=== PATIENT | female | born 1970 | race Caucasian/White ===

== ENCOUNTER 2019-05-05 09:59 | Inpatient (IN) | payer BC ==
[2019-05-05 10:51] LABS: ABNORMAL IP MESSAGE 1; HEMATOCRIT 13.3 % (37.0-47.0); MEAN CORPUSCULAR HGB CONC 31.6 g/dl (32.0-37.0); MEAN CORPUSCULAR VOLUME 91.7 fl (82.0-101.0); NUCLEATED RED BLOOD CELLS% 0.2 /100WBC (0.0-0.0); PLATELET COUNT 135 10^3/UL (140-415); RED BLOOD COUNT 1.45 10^6/ul (4.20-5.40); RED CELL DISTRIBUTION WIDTH 14.4 % (11.5-14.5)
[2019-05-05 10:51] LABS: WHITE BLOOD COUNT 10.1 10^3/ul (4.8-10.8)
[2019-05-05 10:57] LABS: ADD MAN DIFF? YES; HEMOGLOBIN 4.2 g/dl (12.0-16.0); POSITIVE DIFF @See below
[2019-05-05 11:09] LABS: ALANINE AMINOTRANSFERASE 13 IU/L (13-69); ALBUMIN 4.3 g/dl (3.3-4.9); ALBUMIN/GLOBULIN RATIO 1.19; ALKALINE PHOSPHATASE 101 IU/L (42-121); ANION GAP 31 (5-13); ASPARTATE AMINO TRANSFERASE 23 IU/L (15-46); CHLORIDE 105 mmol/L (97-110); GLUCOSE 112 mg/dl (70-220); POTASSIUM 3.9 mmol/L (3.5-5.1); SODIUM 142 mmol/L (135-144); TOTAL PROTEIN 7.9 g/dl (6.1-8.1)
[2019-05-05 11:14] LABS: CALCIUM 3.2 mg/dl (8.4-10.2); CARBON DIOXIDE 6 mmol/L (21-31)
[2019-05-05] MEDS: HYDROCODONE/APAP (5/325) TAB PO (11:17)
[2019-05-05 11:20] LABS: TROPONIN-I < 0.012 ng/ml (0.000-0.120)
[2019-05-05 11:21] LABS: BLOOD UREA NITROGEN 202 mg/dl (7-20); CREATININE 21.61 mg/dl (0.44-1.00); Estimated GFR 2 mL/min (>60)
[2019-05-05 11:38] LABS: B-TYPE NATRIURETIC PEPTIDE 59800 PG/ML (0-125)
[2019-05-05 11:39] LABS: MODE ROOM AIR; MetHgb Venous 1.4 %; Sample Type Blood venous; Site VENOUS LINE; Venous COHb 0.6 %; Venous Fraction OxyHgb 36.4 %; Venous Oxygen Sat 37.1 mmHG (55.0-75.0); Venous Total Hemglobin 4.6 g/dl
[2019-05-05] MEDS: CALCIUM GLUCONATE 10% 1 GM in DEXTROSE 5% 100 ML IVPB (11:46)
[2019-05-05] MEDS: MAGNESIUM SULFATE 1 GM/D5W 100 ML IVPB (11:51)
[2019-05-05 12:00] LABS: ANISOCYTOSIS 2+ (0-0); BURR CELLS 1+ (0-0); EOSINOPHILS % (M) 1 % (0-7); HYPOCHROMASIA 1+ (0-0); LYMPHOCYTES #M 0.8 10^3/ul (0.8-2.9); LYMPHOCYTES % (M) 8 % (15-51); METAMYELOCYTES #M 0.1 10^3/ul (0.0-0.0); METAMYELOCYTES %M 1 % (0-0); MONOCYTE #M 0.2 10^3/ul (0.3-0.9); MONOCYTES % (M) 2 % (0-11); OVALOCYTES 1+ (0-0); PLATELET ESTIMATE DECREASED; POIKILOCYTOSIS 2+ (0-0); POLYCHROMASIA 2+ (0-0); SEGMENTED NEUTROPHILS (M) % 88 % (39-77); TEAR DROP CELLS 1+ (0-0)
[2019-05-05 12:17] LABS: PHOSPHORUS 12.4 mg/dl (2.5-4.9)
[2019-05-05] MEDS ORDERED: ACETAMINOPHEN 325 MG TAB PO (12:30)
[2019-05-05] MEDS ORDERED: ONDANSETRON 4 MG INJ IV (12:30)
[2019-05-05] MEDS: SODIUM BICARBONATE IN D5W 1,000 ML IV (12:54)
[2019-05-05] MEDS: SOD CHLORIDE 0.9% 0 ML IV (13:05)
[2019-05-05] MEDS ORDERED: ALBUTEROL/IPRATROPIUM (NEB) 3 ML AMP NEB (13:30)
[2019-05-05] MEDS ORDERED: INSULIN HUMAN REGULAR 100 UNIT in SOD CHLORIDE 0.9% 99 ML IV (13:30)
[2019-05-05] MEDS ORDERED: DEXTROSE 50% 50 ML SYRINGE IV ×2 (13:30)
[2019-05-05] MEDS: ACCU-CHEK XX ×3 (13:30→19:45)
[2019-05-05 16:25] LABS: IMMEDIATE SPIN CROSSMATCH 1 4
[2019-05-05 17:15] LABS: IONIZED CALCIUM < 0.6 mmol/L (1.1-1.4)
[2019-05-05] MEDS: MANNITOL 25% 50 ML INJ IV* ×4 (19:45→22:10)
[2019-05-05] MEDS: SEVELAMER CARBONATE 0.8 GM PKT GTB (19:45)
[2019-05-05] MEDS: morphine 2 MG INJ IV (20:51)
[2019-05-05 21:26] LABS: HEPATITIS B SURFACE ANTIGEN NEGATIVE (NEGATIVE)
[2019-05-05] MEDS: ONDANSETRON 4 MG INJ IV (21:26)
[2019-05-05 21:44] LABS: HEPATITIS B SURFACE ANTIBODY NEGATIVE (NEGATIVE)
[2019-05-05 21:44] LABS: HEPATITIS C VIRAL ANTIBODY NEGATIVE (NEGATIVE)
[2019-05-05] MEDS: HEPARIN 1000 UNITS/ML 10 ML INJ CATHETER (23:46)
[2019-05-06 05:39] LABS: ADD MAN DIFF? NO
[2019-05-06 05:52] LABS: ABNORMAL IP MESSAGE 1; BASOPHILS % 0.1 % (0.0-2.0); EOSINOPHILS % 0.3 % (0.0-7.0); HEMATOCRIT 17.6 % (37.0-47.0); LYMPHOCYTES # 0.4 10^3/ul (0.8-2.9); LYMPHOCYTES % 5.3 % (15.0-51.0); MEAN CORPUSCULAR HEMOGLOBIN 29.6 pg (29.0-33.0); MEAN CORPUSCULAR HGB CONC 34.1 g/dl (32.0-37.0); MEAN CORPUSCULAR VOLUME 86.7 fl (82.0-101.0); MEAN PLATELET VOLUME 10.5 fl (7.4-10.4); MONOCYTE # 0.3 10^3/ul (0.3-0.9); MONOCYTES % 4.2 % (0.0-11.0); NEUTROPHIL # 6.5 10^3/ul (1.6-7.5); NEUTROPHILS % 89.3 % (39.0-77.0); PLATELET COUNT 112 10^3/UL (140-415); RED BLOOD COUNT 2.03 10^6/ul (4.20-5.40); RED CELL DISTRIBUTION WIDTH 13.4 % (11.5-14.5)
[2019-05-06 05:52] LABS: WHITE BLOOD COUNT 7.3 10^3/ul (4.8-10.8)
[2019-05-06 06:10] LABS: ALANINE AMINOTRANSFERASE 22 IU/L (13-69); ALBUMIN 3.2 g/dl (3.3-4.9); ALBUMIN/GLOBULIN RATIO 1.06; ALKALINE PHOSPHATASE 83 IU/L (42-121); ANION GAP 21 (5-13); ASPARTATE AMINO TRANSFERASE 23 IU/L (15-46); BILIRUBIN,INDIRECT 0.4 mg/dl (0-1.1); BILIRUBIN,TOTAL 0.4 mg/dl (0.2-1.3); CARBON DIOXIDE 18 mmol/L (21-31); CHLORIDE 102 mmol/L (97-110); CREATININE 13.89 mg/dl (0.44-1.00); Estimated GFR 3 mL/min (>60); GLUCOSE 106 mg/dl (70-220); MAGNESIUM 1.2 mg/dl (1.7-2.5); PHOSPHORUS 6.1 mg/dl (2.5-4.9); SODIUM 141 mmol/L (135-144); TOTAL PROTEIN 6.2 g/dl (6.1-8.1)
[2019-05-06 06:18] LABS: POSITIVE DIFF @See below
[2019-05-06] MEDS: PANTOPRAZOLE 40 MG INJ IV (06:32)
[2019-05-06] MEDS: SODIUM BICARBONATE IN D5W 1,000 ML IV ×2 (06:32→21:31)
[2019-05-06 06:39] LABS: BLOOD UREA NITROGEN 140 mg/dl (7-20)
[2019-05-06 06:42] LABS: POTASSIUM 2.5 mmol/L (3.5-5.1)
[2019-05-06] MEDS: POTASSIUM CHLORIDE (SR) 20 MEQ TAB PO ×2 (07:00→07:39)
[2019-05-06 07:23] LABS: IONIZED CALCIUM 0.7 mmol/L (1.1-1.4)
[2019-05-06] MEDS: ONDANSETRON 4 MG INJ IV ×2 (07:43→14:53)
[2019-05-06] MEDS: CALCIUM GLUCONATE 10% 2 GM in DEXTROSE 5% 100 ML IVPB ×2 (07:44→08:09)
[2019-05-06] MEDS: SOD CHLORIDE 0.9% 250 ML IV* ×2 (07:55→10:38)
[2019-05-06 08:16] LABS: BURR CELLS 1+ (0-0); ERYTHROBLAST% (NRBC) (M) 1 % (0-0); GIANT THROMBO% (M) 2 % (0-0); LYMPHOCYTES #M 0.3 10^3/ul (0.8-2.9); LYMPHOCYTES % (M) 5 % (15-51); MONOCYTE #M 0.3 10^3/ul (0.3-0.9); MONOCYTES % (M) 5 % (0-11); OVALOCYTES 1+ (0-0); PLATELET ESTIMATE DECREASED; POIKILOCYTOSIS 1+ (0-0); POLYCHROMASIA 1+ (0-0); SEGMENTED NEUTROPHILS (M) % 90 % (39-77); SMUDGE%M 1 % (0-0)
[2019-05-06 08:33] LABS: HAAIG REFLEX REFLEX FILED
[2019-05-06] MEDS: MAGNESIUM SULFATE 2 GM/50 ML 50 ML IVPB ×2 (08:57→11:33)
[2019-05-06 09:34] LABS: HEPATITIS B SURFACE ANTIGEN NEGATIVE (NEGATIVE)
[2019-05-06] MEDS: CALCITRIOL 1 MCG INJ IV (09:40)
[2019-05-06 09:52] LABS: HEPATITIS B CORE ANTIBODY NEGATIVE (NEGATIVE); HEPATITIS C VIRAL ANTIBODY NEGATIVE (NEGATIVE)
[2019-05-06 09:56] LABS: PARATHYROID HORMONE 438.5 pg/ml (24.0-73.0)
[2019-05-06] MEDS: POTASSIUM CHLORIDE 50 ML IVPB ×2 (12:34→14:53)
[2019-05-06] MEDS: MANNITOL 25% 50 ML INJ IV* (13:07)
[2019-05-06] MEDS: HEPARIN 1000 UNITS/ML 10 ML INJ CATHETER (16:04)
[2019-05-06] MEDS: POTASSIUM CHLORIDE 100 ML IVPB (23:01)
[2019-05-06] MEDS: DIPHENHYDRAMINE 50 MG CAP PO (23:01)
[2019-05-07] MEDS: PHENAZOPYRIDINE 100 MG TAB PO (01:36)
[2019-05-07] MEDS: POTASSIUM CHLORIDE 100 ML IVPB (01:37)
[2019-05-07] MEDS: SODIUM BICARBONATE IN D5W 1,000 ML IV ×2 (03:30→10:08)
[2019-05-07] MEDS: EUCERIN 113 GM CR TOP ×3 (03:33→21:32)
[2019-05-07] MEDS: CEFTRIAXONE 1 GM/50 ML (PMX) 50 ML IVPB (03:34)
[2019-05-07] MEDS: PANTOPRAZOLE 40 MG INJ IV (05:26)
[2019-05-07 07:08] LABS: WHITE BLOOD COUNT 6.9 10^3/ul (4.8-10.8)
[2019-05-07 07:08] LABS: ADD MAN DIFF? NO; BASOPHILS % 0.4 % (0.0-2.0); EOSINOPHILS # 0.1 10^3/ul (0.0-0.5); EOSINOPHILS % 1.4 % (0.0-7.0); HEMATOCRIT 26.1 % (37.0-47.0); LYMPHOCYTES # 0.8 10^3/ul (0.8-2.9); LYMPHOCYTES % 11.6 % (15.0-51.0); MEAN CORPUSCULAR HEMOGLOBIN 30.1 pg (29.0-33.0); MEAN CORPUSCULAR HGB CONC 34.5 g/dl (32.0-37.0); MEAN CORPUSCULAR VOLUME 87.3 fl (82.0-101.0); MEAN PLATELET VOLUME 10.3 fl (7.4-10.4); MONOCYTE # 0.6 10^3/ul (0.3-0.9); NEUTROPHIL # 5.4 10^3/ul (1.6-7.5); PLATELET COUNT 106 10^3/UL (140-415); RED BLOOD COUNT 2.99 10^6/ul (4.20-5.40); RED CELL DISTRIBUTION WIDTH 14.3 % (11.5-14.5)
[2019-05-07 07:21] LABS: ADD UMIC YES; UR ASCORBIC ACID NEGATIVE (NEGATIVE); UR BACTERIA FEW /HPF (NONE SEEN); UR BILIRUBIN (Dip) NEGATIVE (NEGATIVE); UR BLOOD (Dip) 1+ mg/dL (NEGATIVE); UR CLARITY CLEAR (CLEAR); UR COLOR STRAW (YELLOW); UR GLUCOSE (Dip) 1+ mg/dL (NEGATIVE); UR KETONES (Dip) TRACE mg/dL (NEGATIVE); UR LEUKOCYTE ESTERASE (Dip) TRACE Leu/ul (NEGATIVE); UR NITRITE (Dip) NEGATIVE (NEGATIVE); UR RBC 4 /HPF (0-5); UR SPECIFIC GRAVITY (Dip) 1.009 (1.003-1.030); UR SQUAMOUS EPITHELIAL CELL FEW /HPF (FEW); UR TOTAL PROTEIN (Dip) 2+ mg/dl (NEGATIVE); UR UROBILINOGEN (Dip) NEGATIVE (NEGATIVE); UR WBC 5 /HPF (0-5)
[2019-05-07 07:28] LABS: ALANINE AMINOTRANSFERASE 18 IU/L (13-69); ALBUMIN/GLOBULIN RATIO 0.96; ALKALINE PHOSPHATASE 80 IU/L (42-121); ANION GAP 10 (5-13); ASPARTATE AMINO TRANSFERASE 22 IU/L (15-46); BILIRUBIN,INDIRECT 0.9 mg/dl (0-1.1); BILIRUBIN,TOTAL 0.9 mg/dl (0.2-1.3); BLOOD UREA NITROGEN 92 mg/dl (7-20); CARBON DIOXIDE 34 mmol/L (21-31); CHLORIDE 97 mmol/L (97-110); CREATININE 9.79 mg/dl (0.44-1.00); Estimated GFR 4 mL/min (>60); GLUCOSE 126 mg/dl (70-220); PHOSPHORUS 4.2 mg/dl (2.5-4.9); POTASSIUM 3.2 mmol/L (3.5-5.1); SODIUM 141 mmol/L (135-144); TOTAL PROTEIN 6.1 g/dl (6.1-8.1)
[2019-05-07 07:32] LABS: CALCIUM 5.2 mg/dl (8.4-10.2)
[2019-05-07 08:08] LABS: MAGNESIUM 1.9 mg/dl (1.7-2.5)
[2019-05-07] MEDS: CALCITRIOL 1 MCG INJ IV (10:07)
[2019-05-07] MEDS: CALCIUM CARBONATE 500 MG CHEW TAB PO ×3 (10:07→21:33)
[2019-05-07] MEDS: CALCIUM GLUCONATE 10% 2 GM in DEXTROSE 5% 100 ML IVPB (10:08)
[2019-05-07] MEDS: POTASSIUM CHLORIDE (SR) 20 MEQ TAB PO (10:08)
[2019-05-07] MEDS: MAGNESIUM SULFATE 2 GM/50 ML 50 ML IVPB (12:18)
[2019-05-07] MEDS ORDERED: SODIUM BICARBONATE (IV ADD) 150 MEQ in DEXTROSE 5% 850 ML IV (16:50)
[2019-05-07] MEDS: MANNITOL 25% 50 ML INJ IV* (17:23)
[2019-05-07] MEDS: ALTEPLASE (CATHFLO) 2 MG INJ CATHETER (19:57)
[2019-05-07] MEDS: LABETALOL HCL 20MG INJ IV (21:15)
[2019-05-07] MEDS: COLLAGENASE 5 GM (UD JAR) TOP (21:31)
[2019-05-07] MEDS ORDERED: LORAZEPAM 2 MG INJ IV ×2 (22:00)
[2019-05-07 22:12] LABS: ANION GAP 13 (5-13); BLOOD UREA NITROGEN 44 mg/dl (7-20); CALCIUM 7.5 mg/dl (8.4-10.2); CARBON DIOXIDE 32 mmol/L (21-31); CHLORIDE 95 mmol/L (97-110); CREATININE 5.96 mg/dl (0.44-1.00); Estimated GFR 8 mL/min (>60); GLUCOSE 177 mg/dl (70-220); MAGNESIUM 2.1 mg/dl (1.7-2.5); PHOSPHORUS 2.8 mg/dl (2.5-4.9); POTASSIUM 3.2 mmol/L (3.5-5.1); SODIUM 140 mmol/L (135-144)
[2019-05-07] MEDS: LEVETIRACETAM IV 750 MG in DEXTROSE 5% 100 ML IVPB (22:56)
[2019-05-08] MEDS: LORAZEPAM 2 MG INJ IV (00:20)
[2019-05-08] MEDS: CEFTRIAXONE 1 GM/50 ML (PMX) 50 ML IVPB (00:31)
[2019-05-08] MEDS: POTASSIUM CHLORIDE 100 ML IVPB (01:09)
[2019-05-08] MEDS: PANTOPRAZOLE 40 MG INJ IV (05:41)
[2019-05-08 06:34] LABS: ADD MAN DIFF? NO
[2019-05-08 06:55] LABS: WHITE BLOOD COUNT 8.4 10^3/ul (4.8-10.8)
[2019-05-08 06:55] LABS: BASOPHILS % 0.2 % (0.0-2.0); EOSINOPHILS # 0.1 10^3/ul (0.0-0.5); EOSINOPHILS % 0.8 % (0.0-7.0); HEMATOCRIT 27.4 % (37.0-47.0); HEMOGLOBIN 8.9 g/dl (12.0-16.0); LYMPHOCYTES # 0.7 10^3/ul (0.8-2.9); LYMPHOCYTES % 8.2 % (15.0-51.0); MEAN CORPUSCULAR HEMOGLOBIN 29.9 pg (29.0-33.0); MEAN CORPUSCULAR HGB CONC 32.5 g/dl (32.0-37.0); MEAN CORPUSCULAR VOLUME 91.9 fl (82.0-101.0); MEAN PLATELET VOLUME 10.2 fl (7.4-10.4); MONOCYTE # 0.7 10^3/ul (0.3-0.9); MONOCYTES % 7.7 % (0.0-11.0); NEUTROPHIL # 6.9 10^3/ul (1.6-7.5); NEUTROPHILS % 82.6 % (39.0-77.0); PLATELET COUNT 102 10^3/UL (140-415); RED BLOOD COUNT 2.98 10^6/ul (4.20-5.40); RED CELL DISTRIBUTION WIDTH 14.3 % (11.5-14.5)
[2019-05-08 07:16] LABS: ALANINE AMINOTRANSFERASE 18 IU/L (13-69); ALBUMIN 3.1 g/dl (3.3-4.9); ALBUMIN/GLOBULIN RATIO 0.96; ALKALINE PHOSPHATASE 81 IU/L (42-121); ANION GAP 8 (5-13); ASPARTATE AMINO TRANSFERASE 26 IU/L (15-46); BILIRUBIN,INDIRECT 0.5 mg/dl (0-1.1); BILIRUBIN,TOTAL 0.5 mg/dl (0.2-1.3); BLOOD UREA NITROGEN 51 mg/dl (7-20); CALCIUM 6.5 mg/dl (8.4-10.2); CARBON DIOXIDE 35 mmol/L (21-31); CHLORIDE 96 mmol/L (97-110); CREATININE 6.46 mg/dl (0.44-1.00); Estimated GFR 7 mL/min (>60); GLUCOSE 106 mg/dl (70-220); MAGNESIUM 2.1 mg/dl (1.7-2.5); PHOSPHORUS 3.2 mg/dl (2.5-4.9); SODIUM 139 mmol/L (135-144); TOTAL PROTEIN 6.3 g/dl (6.1-8.1)
[2019-05-08] MEDS ORDERED: CALCIUM ACETATE 667 MG CAP PO (07:55)
[2019-05-08] MEDS ORDERED: CALCITRIOL 0.25 MCG CAP PO (09:00)
[2019-05-08] MEDS: CALCIUM CARBONATE 500 MG CHEW TAB PO ×3 (09:07→18:49)
[2019-05-08] MEDS: CALCITRIOL 1 MCG INJ IV (09:07)
[2019-05-08] MEDS: HYDROCORTISONE 2.5% 28.35 GM OINT TOP (09:10)
[2019-05-08] MEDS: COLLAGENASE 5 GM (UD JAR) TOP ×2 (09:11→20:42)
[2019-05-08] MEDS: EUCERIN 113 GM CR TOP ×2 (09:13→20:42)
[2019-05-08] MEDS: CALCIUM GLUCONATE 10% 2 GM in DEXTROSE 5% 100 ML IVPB (12:01)
[2019-05-08 12:22] LABS: INR 1.05; PROTIME 13.8 Sec (11.9-14.9); PT RATIO 1.1
[2019-05-08 15:08] LABS: AMPHETAMINE/METHAMPHETAMINE Negative (NEGATIVE); BARBITURATES Negative (NEGATIVE); BENZODIAZEPINES Negative (NEGATIVE); CANNABINOIDS Negative (NEGATIVE); COCAINE Negative (NEGATIVE); OPIATES Negative (NEGATIVE)
[2019-05-09] MEDS: CEFTRIAXONE 1 GM/50 ML (PMX) 50 ML IVPB (00:23)
[2019-05-09] MEDS: PANTOPRAZOLE 40 MG INJ IV (06:02)
[2019-05-09 06:47] LABS: ADD MAN DIFF? NO
[2019-05-09 06:50] LABS: BASOPHILS % 0.4 % (0.0-2.0); EOSINOPHILS # 0.3 10^3/ul (0.0-0.5); HEMATOCRIT 30.2 % (37.0-47.0); HEMOGLOBIN 9.3 g/dl (12.0-16.0); LYMPHOCYTES # 1.3 10^3/ul (0.8-2.9); LYMPHOCYTES % 15.6 % (15.0-51.0); MEAN CORPUSCULAR HEMOGLOBIN 29.7 pg (29.0-33.0); MEAN CORPUSCULAR HGB CONC 30.8 g/dl (32.0-37.0); MEAN CORPUSCULAR VOLUME 96.5 fl (82.0-101.0); MEAN PLATELET VOLUME 9.9 fl (7.4-10.4); MONOCYTE # 0.5 10^3/ul (0.3-0.9); MONOCYTES % 5.8 % (0.0-11.0); NEUTROPHIL # 6.1 10^3/ul (1.6-7.5); NEUTROPHILS % 73.5 % (39.0-77.0); PLATELET COUNT 105 10^3/UL (140-415); RED BLOOD COUNT 3.13 10^6/ul (4.20-5.40); RED CELL DISTRIBUTION WIDTH 14.3 % (11.5-14.5)
[2019-05-09 06:50] LABS: WHITE BLOOD COUNT 8.3 10^3/ul (4.8-10.8)
[2019-05-09 07:14] LABS: ANION GAP 9 (5-13); BLOOD UREA NITROGEN 62 mg/dl (7-20); CALCIUM 6.4 mg/dl (8.4-10.2); CARBON DIOXIDE 33 mmol/L (21-31); CHLORIDE 98 mmol/L (97-110); CREATININE 7.99 mg/dl (0.44-1.00); Estimated GFR 5 mL/min (>60); GLUCOSE 88 mg/dl (70-220); PHOSPHORUS 3.8 mg/dl (2.5-4.9); SODIUM 140 mmol/L (135-144)
[2019-05-09] MEDS: EUCERIN 113 GM CR TOP ×2 (09:22→21:30)
[2019-05-09] MEDS: CALCITRIOL 1 MCG INJ IV (09:22)
[2019-05-09] MEDS: CALCIUM CARBONATE 500 MG CHEW TAB PO ×4 (09:22→21:30)
[2019-05-09] MEDS: COLLAGENASE 5 GM (UD JAR) TOP ×2 (09:23→21:30)
[2019-05-09] MEDS: HYDROCORTISONE 2.5% 28.35 GM OINT TOP (09:23)
[2019-05-09] MEDS: ACETAMINOPHEN 650MG/20.3ML CUP PO (16:42)
[2019-05-09] MEDS: ONDANSETRON 4 MG INJ IV (17:12)
[2019-05-09] MEDS: EPOETIN ALFA-EPBX (ESRD) 10,000 UNIT/ML VIAL SC (18:34)
[2019-05-09] MEDS: HEPARIN 1000 UNITS/ML 10 ML INJ CATHETER (18:39)
[2019-05-10] MEDS: CEFTRIAXONE 1 GM/50 ML (PMX) 50 ML IVPB (00:45)
[2019-05-10] MEDS: PANTOPRAZOLE 40 MG INJ IV (05:49)
[2019-05-10] MEDS: CALCITRIOL 1 MCG INJ IV (08:30)
[2019-05-10] MEDS: CALCIUM CARBONATE 500 MG CHEW TAB PO ×4 (08:30→21:36)
[2019-05-10] MEDS: HYDROCORTISONE 2.5% 28.35 GM OINT TOP (08:30)
[2019-05-10] MEDS: COLLAGENASE 5 GM (UD JAR) TOP ×2 (08:30→21:35)
[2019-05-10] MEDS: EUCERIN 113 GM CR TOP ×2 (08:31→21:38)
[2019-05-10 09:13] LABS: ADD MAN DIFF? NO
[2019-05-10 09:25] LABS: WHITE BLOOD COUNT 8.1 10^3/ul (4.8-10.8)
[2019-05-10 09:25] LABS: BASOPHILS % 0.5 % (0.0-2.0); EOSINOPHILS # 0.3 10^3/ul (0.0-0.5); EOSINOPHILS % 3.5 % (0.0-7.0); HEMATOCRIT 29.5 % (37.0-47.0); LYMPHOCYTES # 1.1 10^3/ul (0.8-2.9); LYMPHOCYTES % 13.4 % (15.0-51.0); MEAN CORPUSCULAR HEMOGLOBIN 29.3 pg (29.0-33.0); MEAN CORPUSCULAR HGB CONC 30.5 g/dl (32.0-37.0); MEAN CORPUSCULAR VOLUME 96.1 fl (82.0-101.0); MEAN PLATELET VOLUME 10.3 fl (7.4-10.4); MONOCYTE # 0.6 10^3/ul (0.3-0.9); MONOCYTES % 6.8 % (0.0-11.0); NEUTROPHIL # 6.1 10^3/ul (1.6-7.5); NEUTROPHILS % 75.6 % (39.0-77.0); PLATELET COUNT 102 10^3/UL (140-415); RED BLOOD COUNT 3.07 10^6/ul (4.20-5.40); RED CELL DISTRIBUTION WIDTH 13.9 % (11.5-14.5)
[2019-05-10 09:38] LABS: ANION GAP 9 (5-13); BLOOD UREA NITROGEN 34 mg/dl (7-20); CALCIUM 7.7 mg/dl (8.4-10.2); CARBON DIOXIDE 32 mmol/L (21-31); CHLORIDE 99 mmol/L (97-110); CREATININE 5.27 mg/dl (0.44-1.00); Estimated GFR 9 mL/min (>60); GLUCOSE 89 mg/dl (70-220); POTASSIUM 4.1 mmol/L (3.5-5.1); SODIUM 140 mmol/L (135-144)
[2019-05-10] MEDS: ZOLPIDEM 5 MG TAB PO (21:39)
[2019-05-11] MEDS: CEFTRIAXONE 1 GM/50 ML (PMX) 50 ML IVPB (00:34)
[2019-05-11] MEDS: PANTOPRAZOLE 40 MG INJ IV (05:38)
[2019-05-11 06:56] LABS: ADD MAN DIFF? NO
[2019-05-11 07:02] LABS: WHITE BLOOD COUNT 7.4 10^3/ul (4.8-10.8)
[2019-05-11 07:02] LABS: BASOPHILS % 0.4 % (0.0-2.0); EOSINOPHILS # 0.4 10^3/ul (0.0-0.5); EOSINOPHILS % 4.8 % (0.0-7.0); HEMATOCRIT 27.9 % (37.0-47.0); HEMOGLOBIN 8.4 g/dl (12.0-16.0); LYMPHOCYTES # 1.2 10^3/ul (0.8-2.9); LYMPHOCYTES % 16.7 % (15.0-51.0); MEAN CORPUSCULAR HEMOGLOBIN 29.1 pg (29.0-33.0); MEAN CORPUSCULAR HGB CONC 30.1 g/dl (32.0-37.0); MEAN CORPUSCULAR VOLUME 96.5 fl (82.0-101.0); MEAN PLATELET VOLUME 9.8 fl (7.4-10.4); MONOCYTE # 0.5 10^3/ul (0.3-0.9); MONOCYTES % 6.7 % (0.0-11.0); NEUTROPHIL # 5.3 10^3/ul (1.6-7.5); PLATELET COUNT 101 10^3/UL (140-415); RED BLOOD COUNT 2.89 10^6/ul (4.20-5.40); RED CELL DISTRIBUTION WIDTH 13.7 % (11.5-14.5)
[2019-05-11 07:34] LABS: ANION GAP 11 (5-13); BLOOD UREA NITROGEN 56 mg/dl (7-20); CALCIUM 7.2 mg/dl (8.4-10.2); CARBON DIOXIDE 29 mmol/L (21-31); CHLORIDE 100 mmol/L (97-110); CREATININE 6.97 mg/dl (0.44-1.00); Estimated GFR 6 mL/min (>60); GLUCOSE 102 mg/dl (70-220); POTASSIUM 4.1 mmol/L (3.5-5.1); SODIUM 140 mmol/L (135-144)
[2019-05-11] MEDS: LIDOCAINE 1% (MDV) 20 ML INJ (07:34)
[2019-05-11] MEDS: HEPARIN 1000 UNITS/ML 10 ML INJ (07:34)
[2019-05-11] MEDS: FENTAnyl 50 MCG/ML VIAL (07:35)
[2019-05-11] MEDS: MIDAZOLAM 1 MG/ML 2 ML INJ (07:35)
[2019-05-11] MEDS: COLLAGENASE 5 GM (UD JAR) TOP (08:17)
[2019-05-11] MEDS: CALCITRIOL 1 MCG INJ IV (08:17)
[2019-05-11] MEDS: HYDROCORTISONE 2.5% 28.35 GM OINT TOP (08:17)
[2019-05-11] MEDS: CALCIUM CARBONATE 500 MG CHEW TAB PO ×3 (08:17→16:30)
[2019-05-11] MEDS: EUCERIN 113 GM CR TOP (08:18)
[2019-05-11] MEDS: CHOLECALCIFEROL 2,000 UNIT CAP PO (10:11)
[2019-05-11 10:22] LABS: IRON 53 ug/dl (35-150)
[2019-05-11 10:31] LABS: % IRON SATURATION 23 % SAT (22-52)
[2019-05-11 11:05] LABS: TOTAL IRON BINDING CAPACITY 229 ug/dl (241-421)
[2019-05-11] MEDS: HEPARIN 1000 UNITS/ML 10 ML INJ CATHETER (12:57)
[2019-05-11] MEDS: GENTAMICIN 70 MG in DEXTROSE 5% 50 ML IVPB (13:10)
[2019-05-11] MEDS: GENTAMICIN IV PER PHARMACY XX (13:11)
[2019-05-11] MEDS: EPOETIN ALFA-EPBX (ESRD) 10,000 UNIT/ML VIAL SC (16:31)
[2019-05-11] MEDS ORDERED: ZOLPIDEM 5 MG TAB PO (21:00)
== END 2019-05-11 19:00 | disposition home health service (06) | DRG 673 ==
LOC: TEL 05-08 00:56 → E/R 09:59 → TEL 05-06 22:20 → ICU 12:26
PROC: 06HM33Z Insertion of Infusion Device into Right Femoral Vein, Percutaneous Approach (ICD-10-PCS; 2019-05-05)
PROC: 30233N1 Transfusion of Nonautologous Red Blood Cells into Peripheral Vein, Percutaneous Approach (ICD-10-PCS; 2019-05-05)
PROC: 5A1D70Z Performance of Urinary Filtration, Intermittent, Less than 6 Hours Per Day (ICD-10-PCS; 2019-05-05)
PROC: 0JH63XZ Insertion of Tunneled Vascular Access Device into Chest Subcutaneous Tissue and Fascia, Percutaneous Approach (ICD-10-PCS; principal; 2019-05-09)
PROC: 02H633Z Insertion of Infusion Device into Right Atrium, Percutaneous Approach (ICD-10-PCS; 2019-05-09)
PROC: B244ZZZ Ultrasonography of Right Heart (ICD-10-PCS; 2019-05-09)
DX: I12.0 Hypertensive chronic kidney disease with stage 5 chronic kidney disease or end stage renal disease (principal); N18.6 End stage renal disease; E87.2 Acidosis; Q61.3 Polycystic kidney, unspecified; N39.0 Urinary tract infection, site not specified; N25.81 Secondary hyperparathyroidism of renal origin; E87.8 Other disorders of electrolyte and fluid balance, not elsewhere classified; R56.9 Unspecified convulsions; E83.39 Other disorders of phosphorus metabolism; D63.1 Anemia in chronic kidney disease; J45.909 Unspecified asthma, uncomplicated; D69.6 Thrombocytopenia, unspecified; H91.90 Unspecified hearing loss, unspecified ear; B96.20 Unspecified Escherichia coli [E. coli] as the cause of diseases classified elsewhere
CPT/HCPCS: 36415; 36430; 36558; 70450; 70551; 71045; 76700; 76942; 80048; 80053; 80307; 81001; 82306; 82330; 82652; 82728; 82803; 82962; 83540; 83735; 83880; 83970; 84100; 84132; 84484; 85025; 85610; 86704; 86706; 86709; 86803; 86850; 86900; 86901; 86920; 87081; 87086; 87340; 90935; 95819; 96374; 96375; 97110; 97116; 97162; 97530; 99285-25